=== PATIENT | male | born 1980 | race Caucasian/White ===

== ENCOUNTER 2017-02-25 01:19 | Emergency (ER) | payer SELFPAY ==
--- NOTE | 2017-02-25 01:26 | ER Report ---
History and Physical Time Seen By MD: 01:25 HPI/ROS CHIEF COMPLAINT: allergic reaction HISTORY OF PRESENT ILLNESS: This is a 36 year old male. He is having rash, difficulty swallowing and breathing tonight. Unsure what this is from. Started about 60 minutes ago. Has not had this happen previously. No chest pain. No abdominal pain. No nausea or vomiting. No recent illness. No problems with bowel or bladder function. Has stuffy nose with onset as well. Took one benadryl without relief. Allergies: Coded Allergies: Penicillins (Verified Allergy, Intermediate, rash, 02/25/17) Uncoded Allergies: cats (Allergy, Intermediate, rash, 02/25/17) Home Meds Active Scripts Prednisone (PREDNISONE) 20 Mg Tablet, 60 MG PO QDAY for 2 Days, #6 TAB 0 Refills Prov:LISBETH MONTANEZ MD 02/25/17 Reviewed Nurses Notes: Yes Constitutional Vital Sign - Last 24 Hours 02/25/17 02/25/17 02/25/17 02/25/17 01:25 01:30 01:44 01:45 Temp 98.4 Pulse 97 93 99 Resp 16 B/P (MAP) 140/92 130/83 (99) Pulse Ox 93 93 94 O2 Delivery Room Air 02/25/17 02/25/17 02/25/17 02:00 02:15 02:30 Pulse 84 84 B/P (MAP) 133/86 (102) 113/73 (86) Pulse Ox 95 94 92 Physical Exam General Appearance: The patient is alert. No acute distress. Eyes: Pupils are equal, round. Reactive to light. No pallor, injection or icterus. Extraocular movements are intact. ENT: Mucous membranes are moist. Normal oral mucosa. Posterior oropharynx is normal. Neck: Supple and non tender. Respiratory: Lungs are clear to auscultation. Cardiovascular: Regular rate and rhythm. No murmurs, gallops or rubs. Neurological: Alert and oriented x3. No focal neurologic deficits Skin: Warm and dry. Has urticarial rash over body, worse on chest and arms. DIFFERENTIAL DIAGNOSIS: After history and physical exam, differential diagnosis was considered for allergic reaction. Medical Decision Making ED Course/Re-evaluation Clinical Indication for ER IV: Hydration, IV Access ED Course Improved with Benadryl 50mg IV, Solu-medrol 125mg IV, and Pepcid 20mg IV and a liter of normal saline IV. Decision to Disposition Date: Feb 25, 2017 Decision to Disposition Time: 02:33 Depart Departure Latest Vital Signs Vital Signs Date Time Temp Pulse Resp B/P (MAP) Pulse Ox O2 Delivery O2 Flow Rate FiO2 02/25/17 02:30 113/73 (86) 92 02/25/17 02:15 84 02/25/17 01:25 98.4 16 Room Air Impression: Primary Impression: Allergic reaction Condition: Improved Disposition: HOME OR SELF-CARE New Scripts Prednisone (PREDNISONE) 20 Mg Tablet 60 MG PO QDAY for 2 Days, #6 TAB 0 Refills Prov: LISBETH MONTANEZ MD 02/25/17 Patient Instructions: General Allergic Reaction (ED) Additional Instructions: Prednisone 20mg tablets, take 3 tablets once a day for 2 days. Benadryl 25mg over the counter tablets, take 1-2 tablets every 6 hours for rash and itching. Pepcid 20mg over the counter tablet twice a day Topical use of hydrocortisone cream as needed for itching Follow-up with primary care or consider seeing an club lounge attendant for further evaluation. Problem Qualifiers Primary Impression: Allergic reaction Encounter type: initial encounter Qualified Codes: T78.40XA - Allergy, unspecified, initial encounter LISBETH MONTANEZ MD Feb 25, 2017 01:26
[2017-02-25] MEDS ORDERED: methylPREDNIS SUCC 125 MG/2ML IVP ONE (01:30)
[2017-02-25] MEDS ORDERED: diphenhydrAMINE 50 MG/ML VIAL IVP ONE (01:30)
[2017-02-25] MEDS ORDERED: FAMOTIDINE(*) 20MG/50ML PREMIX 50 ML IVPB ONE (01:30)
[2017-02-25] MEDS ORDERED: NS(*) 0.9% 1000 ML BAG 1,000 ML IV ONE (01:30)
[2017-02-25 02:30] VITALS: BP 113/73
[2017-02-25] MEDS ORDERED: PRED20TA6 PO (02:35)
[2017-02-25] MEDS ORDERED: predniSONE 20 MG TAB PO ONE (02:35)
== END 2017-02-25 02:45 | disposition home or self-care (01) ==
LOC: ER 01:58
DX: T78.40XA Allergy, unspecified, initial encounter (principal)
CPT/HCPCS: 96361; 96365; 96375; 99284; J1200; J2930; J3490; J7030; J7512

== ENCOUNTER 2017-06-23 13:25 | Emergency (ER) | payer SELFPAY ==
[~2017-06-23 13:25] MED LIST: PRED20TA6 PO
--- NOTE | 2017-06-23 13:35 | ER Report ---
History and Physical Time Seen By MD: 13:34 Hx. of Stated Complaint: REFERRED HERE BY CLINIC FOR ELEVATED TRIGLYCERIDES. C/O FATIGUE HPI/ROS CHIEF COMPLAINT: Possible pancreatitis HISTORY OF PRESENT ILLNESS: This is a 36-year-old male who presents to the emergency department for concerns of pancreatitis, the patient was referred from the [facility] to [facility]. The patient has had intermittent fevers over the last 2 weeks with intermittent nausea and diarrhea no blood in the stool. Patient states that they did check him for flu which was negative. Patient also states that he's had fatigue over the last couple of weeks, and weakness in his lower legs with lack of energy. Patient does not have abdominal pain currently, he states that he does have epigastric pain when "the push on it". Patient denies rashes, vomiting, headaches, shortness of breath or chest pain. REVIEW OF SYSTEMS: Constitutional: As above. Eyes: No discharge. ENT: No sore throat. Cardiovascular: No chest pain, no palpitations. Respiratory: No cough, no shortness of breath. Gastrointestinal: As above. Genitourinary: No hematuria. Musculoskeletal: No back pain. Skin: No rashes. Neurological: As above. Allergies: Coded Allergies: Penicillins (Verified Allergy, Intermediate, rash, 02/25/17) Uncoded Allergies: cats (Allergy, Intermediate, rash, 02/25/17) Home Meds Discontinued Scripts Prednisone (PREDNISONE) 20 Mg Tablet, 60 MG PO QDAY for 2 Days, #6 TAB 0 Refills Prov:LISBETH MONTANEZ MD 02/25/17 Past Medical/Surgical History Patient has no significant past medical or surgical history. Reviewed Nurses Notes: Yes Hx Substance Use Disorder: No Hx Alcohol Use: No Constitutional Vital Sign - Last 24 Hours 06/23/17 06/23/17 06/23/17 06/23/17 13:30 13:32 14:00 14:30 Temp 98.1 Pulse 84 89 77 Resp 18 B/P (MAP) 133/90 129/96 (107) 127/78 (94) Pulse Ox 92 94 95 O2 Delivery Room Air 06/23/17 15:24 B/P (MAP) 119/84 (96) Intake and Output 06/23/17 06/23/17 06/24/17 15:00 23:00 07:00 Intake Total 1000 ml Balance 1000 ml Physical Exam General Appearance: The patient is alert, has no immediate need for airway protection and no signs of toxicity. Eyes: Pupils equal and round no pallor or injection. ENT, Mouth: Mucous membranes are moist. Respiratory: There are no retractions, lungs are clear to auscultation. Cardiovascular: Regular rate and rhythm, no murmurs, clicks or rubs. Gastrointestinal: Abdomen is soft. Very mild tenderness to the epigastrium with deep palpation, no masses, bowel sounds normal. Neurological: Alert and oriented 4. Moving all extremities. Following all commands. No focal neuro deficits. Skin: Warm and dry, no rashes. Musculoskeletal: Neck is supple non tender. Extremities are nontender, nonswollen and have full range of motion. DIFFERENTIAL DIAGNOSIS: After history and physical exam differential diagnosis was considered for abdominal pain including but not limited to appendicitis, pancreatitis, cholecystitis, gastritis and urinary tract infection. Medical Decision Making Data Points Result Diagram: 06/23/17 1341 06/23/17 1341 Laboratory Hematology Test 06/23/17 13:41 06/23/17 15:04 Red Blood Count 5.41 M/uL (4.00-5.60) Mean Corpuscular Volume 88.0 fL (80.0-96.0) Mean Corpuscular Hemoglobin 30.8 pg (26.0-33.0) Mean Corpuscular Hemoglobin Concent 35.0 g/dL (32.0-36.0) Red Cell Distribution Width 12.8 % (11.5-14.5) Mean Platelet Volume 8.8 fL (7.2-11.1) Neutrophils (%) (Auto) 63.6 % (39.4-72.5) Lymphocytes (%) (Auto) 22.8 % (17.6-49.6) Monocytes (%) (Auto) 8.9 % (4.1-12.4) Eosinophils (%) (Auto) 3.5 % (0.4-6.7) Basophils (%) (Auto) 1.2 % (0.3-1.4) Nucleated RBC Relative Count (auto) 0.1 /100WBC Neutrophils # (Auto) 4.5 K/uL (2.0-7.4) Lymphocytes # (Auto) 1.6 K/uL (1.3-3.6) Monocytes # (Auto) 0.6 K/uL (0.3-1.0) Eosinophils # (Auto) 0.2 K/uL (0.0-0.5) Basophils # (Auto) 0.1 K/uL (0.0-0.1) Nucleated RBC Absolute Count (auto) 0.01 K/uL Prothrombin Time 15.2 seconds (12.0-14.4) Prothromb Time International Ratio 1.19 Activated Partial Thromboplast Time 28 seconds (23-35) Sodium Level 139 mmol/L (137-145) Potassium Level 3.9 mmol/L (3.5-5.0) Chloride Level 101 mmol/L (98-107) Carbon Dioxide Level 24 mmol/L (22-30) Blood Urea Nitrogen 11 mg/dl (9-21) Creatinine 0.80 mg/dl (0.66-1.25) Glomerular Filtration Rate Calc > 60.0 Random Glucose 117 mg/dl (75-110) Calcium Level 9.7 mg/dl (8.4-10.2) Total Bilirubin 0.6 mg/dl (0.2-1.3) Aspartate Amino Transf (AST/SGOT) 37 U/L (0-35) Alanine Aminotransferase (ALT/SGPT) 109 U/L (0-56) Alkaline Phosphatase 71 U/L (0-126) Total Protein 7.5 gm/dl (6.3-8.2) Albumin 4.4 g/dl (3.5-5.0) Amylase Level 97 U/L (0-110) Lipase 78 U/L (23-300) Urine Color Yellow Urine Clarity Clear Urine pH 7.0 pH (4.8-9.5) Urine Specific [place] 1.012 Urine Protein Negative mg/dL (NEGATIVE) Urine Glucose (UA) Negative mg/dL (NEGATIVE) Urine Ketones Negative mg/dL (NEGATIVE) Urine Blood Negative (NEGATIVE) Urine Nitrite Negative (NEGATIVE) Urine Bilirubin Negative (NEGATIVE) Urine Urobilinogen Negative mg/dL (0.2-1.9) Urine Leukocyte Esterase Negative (NEGATIVE) Urine RBC None /HPF (0-2/HPF) Urine WBC <1 /HPF (0-5/HPF) Urine Squamous Epithelial Cells None /LPF (</=FEW) Urine Bacteria Negative /HPF (NONE-FEW) Urine Mucus None /HPF (NONE-FEW) Chemistry Test 06/23/17 13:41 06/23/17 15:04 White Blood Count 7.1 k/uL (4.5-11.0) Red Blood Count 5.41 M/uL (4.00-5.60) Hemoglobin 16.6 g/dL (14.0-18.0) Hematocrit 47.6 % (42.0-52.0) Mean Corpuscular Volume 88.0 fL (80.0-96.0) Mean Corpuscular Hemoglobin 30.8 pg (26.0-33.0) Mean Corpuscular Hemoglobin Concent 35.0 g/dL (32.0-36.0) Red Cell Distribution Width 12.8 % (11.5-14.5) Platelet Count 184 K/uL (150-450) Mean Platelet Volume 8.8 fL (7.2-11.1) Neutrophils (%) (Auto) 63.6 % (39.4-72.5) Lymphocytes (%) (Auto) 22.8 % (17.6-49.6) Monocytes (%) (Auto) 8.9 % (4.1-12.4) Eosinophils (%) (Auto) 3.5 % (0.4-6.7) Basophils (%) (Auto) 1.2 % (0.3-1.4) Nucleated RBC Relative Count (auto) 0.1 /100WBC Neutrophils # (Auto) 4.5 K/uL (2.0-7.4) Lymphocytes # (Auto) 1.6 K/uL (1.3-3.6) Monocytes # (Auto) 0.6 K/uL (0.3-1.0) Eosinophils # (Auto) 0.2 K/uL (0.0-0.5) Basophils # (Auto) 0.1 K/uL (0.0-0.1) Nucleated RBC Absolute Count (auto) 0.01 K/uL Prothrombin Time 15.2 seconds (12.0-14.4) Prothromb Time International Ratio 1.19 Activated Partial Thromboplast Time 28 seconds (23-35) Glomerular Filtration Rate Calc > 60.0 Calcium Level 9.7 mg/dl (8.4-10.2) Total Bilirubin 0.6 mg/dl (0.2-1.3) Aspartate Amino Transf (AST/SGOT) 37 U/L (0-35) Alanine Aminotransferase (ALT/SGPT) 109 U/L (0-56) Alkaline Phosphatase 71 U/L (0-126) Total Protein 7.5 gm/dl (6.3-8.2) Albumin 4.4 g/dl (3.5-5.0) Amylase Level 97 U/L (0-110) Lipase 78 U/L (23-300) Urine Color Yellow Urine Clarity Clear Urine pH 7.0 pH (4.8-9.5) Urine Specific [place] 1.012 Urine Protein Negative mg/dL (NEGATIVE) Urine Glucose (UA) Negative mg/dL (NEGATIVE) Urine Ketones Negative mg/dL (NEGATIVE) Urine Blood Negative (NEGATIVE) Urine Nitrite Negative (NEGATIVE) Urine Bilirubin Negative (NEGATIVE) Urine Urobilinogen Negative mg/dL (0.2-1.9) Urine Leukocyte Esterase Negative (NEGATIVE) Urine RBC None /HPF (0-2/HPF) Urine WBC <1 /HPF (0-5/HPF) Urine Squamous Epithelial Cells None /LPF (</=FEW) Urine Bacteria Negative /HPF (NONE-FEW) Urine Mucus None /HPF (NONE-FEW) Coagulation Test 06/23/17 13:41 Prothrombin Time 15.2 seconds Prothromb Time International Ratio 1.19 Activated Partial Thromboplast Time 28 seconds Urinalysis Test 06/23/17 15:04 Urine Color Yellow Urine Clarity Clear Urine pH 7.0 pH (4.8-9.5) Urine Specific [place] 1.012 Urine Protein Negative mg/dL (NEGATIVE) Urine Glucose (UA) Negative mg/dL (NEGATIVE) Urine Ketones Negative mg/dL (NEGATIVE) Urine Blood Negative (NEGATIVE) Urine Nitrite Negative (NEGATIVE) Urine Bilirubin Negative (NEGATIVE) Urine Urobilinogen Negative mg/dL (0.2-1.9) Urine Leukocyte Esterase Negative (NEGATIVE) Urine RBC None /HPF (0-2/HPF) Urine WBC <1 /HPF (0-5/HPF) Urine Squamous Epithelial Cells None /LPF (</=FEW) Urine Bacteria Negative /HPF (NONE-FEW) Urine Mucus None /HPF (NONE-FEW) ED Course/Re-evaluation Clinical Indication for ER IV: Hydration, IV Access ED Course The patient was admitted to room. A history and physical were obtained. Differential diagnoses were considered. An IV was started. A CBC, CMP, AMYLASE, LIPASE AND UA were obtained. Lab studies unremarkable. Patient was unable to produce a stool specimen in the ED. The patient was instructed to follow up with the [facility] for further evaluation of his cholesterol. I did review the blood work from the ED, I did explain that he does not have pancreatitis, labs look good and no pain to the epigastrium unless applying a significant of pressure with deep palpation, even with this amount of pressure did not illicit a large amount of pain. Otherwise no complaints. Patient was also given 1 L of normal saline. He declined the Zofran. Patient had no other questions or concerns at this time and was discharged home. Patient was in agreement with this plan of care. Patient was encouraged to return to ED for any other concerns or worsening symptoms. Decision to Disposition Date: June 23, 2017 Decision to Disposition Time: 15:20 Depart Departure Latest Vital Signs Vital Signs Date Time Temp Pulse Resp B/P (MAP) Pulse Ox O2 Delivery O2 Flow Rate FiO2 06/23/17 15:24 119/84 (96) 06/23/17 14:30 77 95 06/23/17 13:32 98.1 18 Room Air Impression: Primary Impression: Epigastric pain Condition: Improved Disposition: HOME OR SELF-CARE New Scripts No Active Prescriptions or Reported Meds Patient Instructions: Acute Abdominal Pain (ED) Additional Instructions: Drink plenty of water. Get plenty of rest. Follow up with the [facility] for further evaluation of your triglycerides and cholesterol. Return to the ED for any other concerns or worsening symptoms. TRAE QUIÑONEZ P[employer]KER-BC June 23, 2017 13:35
[2017-06-23] MEDS ORDERED: NS(*) 0.9% 1000 ML BAG 1,000 ML IV ONE (13:41)
[2017-06-23] MEDS ORDERED: ONDANSETRON 4 MG/2 ML VIAL IVP ONE (13:45)
[2017-06-23 13:52] LABS: PLATELET COUNT, AUTOMATED 184 K/uL (150-450)
[2017-06-23 14:03] LABS: INR 1.19
[2017-06-23 15:24] VITALS: BP 119/84
== END 2017-06-23 15:25 | disposition home or self-care (01) ==
LOC: ER 13:26
DX: R10.13 Epigastric pain (principal)
CPT/HCPCS: 81001; 82150; 83690; 85025; 85610; 85730; 87177; 96360; 99284; J7030; 82040; 82247; 82310; 82374; 82435; 82565; 82947; 84075; 84132; 84155; 84295; 84450; 84460; 84520

== ENCOUNTER 2017-09-18 09:18 | Emergency (ER) | payer OTHER ==
[2017-09-18 09:34] VITALS: BP 121/84
[2017-09-18] MEDS ORDERED: CLIN300C99 PO (09:42)
[2017-09-18] MEDS ORDERED: ONDANSETRON 4 MG ODT TH SL ONE (09:45)
[2017-09-18] MEDS ORDERED: GI COCKTAIL 60 ML BTL PO PRN (09:45)
--- NOTE | 2017-09-18 09:50 | ER Report ---
History and Physical Time Seen By MD: 09:35 Hx. of Stated Complaint: PATIENT HAS BEEN TAKEN ANTIBIOTIC FOR 3 DAYS; PT HAS HAD DIARRHEA; TODAY AFTER EATING HE TOOK HIS ANTIBIOTIC THEN HAD DIARRHEA, N/V AND HEART BURN HPI/ROS CHIEF COMPLAINT: diarrhea, abd discomfort, vomiting HISTORY OF PRESENT ILLNESS: Pt has been taking clindamycin tid for infected tooth; has taken 7 doses; notes 1 episode of loose, watery stool approx 1-2 hrs after each dose, has not been increasing in volume and no bloody/black stools. This am pt took clinda after food, approx 20 min later developed gi upset, nasuea, vomited x 1, no bloody/black vomit. Noted food contents. Has continued nasusea. Has not had cp/difficulty breathing, fevers, chills. Has not had tooth pain; does note fractured tooth but is without pain/swelling. REVIEW OF SYSTEMS: Constitutional: No fever, no chills. Eyes: No discharge. ENT: No sore throat. Cardiovascular: No chest pain, no palpitations. Respiratory: No cough, no shortness of breath. Gastrointestinal: epigastric abd pain Genitourinary: No hematuria. Musculoskeletal: No back pain. Skin: No rashes. Neurological: No headache. Remainder of the 14 system rev: Yes Allergies: Coded Allergies: Penicillins (Verified Allergy, Intermediate, rash, 02/25/17) Uncoded Allergies: cats (Allergy, Intermediate, rash, 02/25/17) Home Meds Reported Medications Clindamycin Hcl (CLINDAMYCIN HCL) 300 Mg Capsule, 300 MG PO Q6H, #40 CAPSULE 09/18/17 Hx Smoking: No Hx Substance Use Disorder: No Hx Alcohol Use: No Constitutional Vital Sign - Last 24 Hours 09/18/17 09:34 Temp 97.6 Pulse 80 Resp 17 B/P (MAP) 121/84 Pulse Ox 96 O2 Delivery Room Air Physical Exam General Appearance: The patient is alert, has no immediate need for airway protection and no signs of toxicity. [ ] Eyes: Pupils equal and round no pallor or injection. ENT, Mouth: Mucous membranes are moist. Pt has remote/subacute geller iii fracture of tooth # 4, no swelling, fluctuance, or tenderness to percussion Respiratory: There are no retractions, lungs are clear to auscultation. Cardiovascular: Regular rate and rhythm. no m/r/g Gastrointestinal: mild epigastric ttp, no ruq ttp, no peritoneal sgs no masses , bowel sounds normal. [Neurological:] alert, oriented, nad Skin: Warm and dry, no rashes. Musculoskeletal: Neck is supple non tender. Extremities are nontender, nonswollen and have full range of motion. [ ] DIFFERENTIAL DIAGNOSIS: After history and physical exam differential diagnosis was considered for dental abscess, pud or complication thereof, cholecystitis, appendictiis, c diff, dehydration, and other emergent illness. Medical Decision Making ED Course/Re-evaluation ED Course pt tolerates meds, improvement in sympotms. We discussed potential for c dif; highly doubt at this point as diarrhea began with first dose of clinda and has not changed, but pt aware of sgs/symptoms. Considered but doubt abd emergency though appearance and exam unlikely. At this point, as pt is pcn allergic and clinda intolerant, and dental exam wtihout clear abscess/ttp; recommend holding further abx unless further recommended by dentist. Decision to Disposition Date: Sep 18, 2017 Decision to Disposition Time: 09:57 Depart Departure Latest Vital Signs Vital Signs Date Time Temp Pulse Resp B/P (MAP) Pulse Ox O2 Delivery O2 Flow Rate FiO2 09/18/17 09:34 97.6 80 17 121/84 96 Room Air Impression: Primary Impression: Gastritis Additional Impression: Diarrhea due to drug Condition: Improved Disposition: HOME OR SELF-CARE New Scripts Ranitidine Hcl (ZANTAC) 150 Mg Tablet 150 MG PO BID for 7 Days, #14 TAB Prov: TIM ROBLES MD 09/18/17 Ondansetron (ZOFRAN ODT) 4 Mg Tab.rapdis 4 MG PO Q6H Y for NAUSEA/VOMITING for 7 Days, #20 TAB.LIDIA 0 Refills Prov: TIM ROBLES MD 09/18/17 Departure Forms: ER Transition Record, Medications Reconciliation, Off Work/ School Form, School or Work Release?: Work Number of days to be released: 1 Patient Portal Information Patient Instructions: Acute Diarrhea (ED), Adverse Drug Reaction (ED), Gastritis (ED) Problem Qualifiers Primary Impression: Gastritis Gastritis type: unspecified gastritis Chronicity: acute Gastritis bleeding : without bleeding Qualified Codes: K29.00 - Acute gastritis without bleeding TIM ROBLES MD Sep 18, 2017 09:50
[2017-09-18] MEDS ORDERED: GI COCKTAIL 60 ML BTL PO ONE (09:55)
[2017-09-18] MEDS ORDERED: RANI-366 PO (09:59)
[2017-09-18] MEDS ORDERED: ONDA4TAB PO (09:59)
[2017-09-18] MEDS ORDERED: ONDANSETRON 4 MG ODT TABDP SL ONE (09:59)
== END 2017-09-18 10:12 | disposition home or self-care (01) ==
LOC: ER 09:24
DX: K29.00 Acute gastritis without bleeding (principal); K52.1 Toxic gastroenteritis and colitis
CPT/HCPCS: 99283; S0119